=== PATIENT | male | born 1995 | race American Indian/Alaskan Native ===

== ENCOUNTER 2016-10-28 11:04 | Emergency (ER) | payer SELFPAY ==
[2016-10-28] MEDS ORDERED: TYLENOL ONE (12:43)
[2016-10-28 12:46] VITALS: BP 126/67
[2016-10-28] MEDS ORDERED: TYLENOL PO ONE (12:47)
--- NOTE | 2016-10-28 13:07 | Emergency Department Report ---
ED ENT HPI - General Chief complaint: Sore Throat Stated complaint: SORE THROAT Time Seen by Provider: 10/28/16 13:04 Source: patient Mode of arrival: Ambulatory Limitations: No Limitations - History of Present Illness MD complaint: sore throat - Related Data Previous Rx's Medication Instructions Recorded Last Taken Type Amoxicillin [Trimox CAP] 500 mg PO Q8H #30 capsule 03/27/15 Unknown Rx HYDROcodone/APAP 5-325 [[place] 1 each PO Q6HR PRN #20 tablet 03/27/15 Unknown Rx 5/325] Amoxicillin [Amoxicillin TAB] 875 mg PO BID #20 tablet 10/28/16 Unknown Rx predniSONE [Deltasone] 50 mg PO QDAY #5 tab 10/28/16 Unknown Rx Allergies Allergy/AdvReac Type Severity Reaction Status Date / Time No Known Allergies Allergy Verified 03/27/15 12:01 ED Dental HPI - General Chief complaint: Sore Throat Stated complaint: SORE THROAT Time Seen by Provider: 10/28/16 13:04 Source: patient Mode of arrival: Ambulatory Limitations: No Limitations - Related Data Previous Rx's Medication Instructions Recorded Last Taken Type Amoxicillin [Trimox CAP] 500 mg PO Q8H #30 capsule 03/27/15 Unknown Rx HYDROcodone/APAP 5-325 [[place] 1 each PO Q6HR PRN #20 tablet 03/27/15 Unknown Rx 5/325] Amoxicillin [Amoxicillin TAB] 875 mg PO BID #20 tablet 10/28/16 Unknown Rx predniSONE [Deltasone] 50 mg PO QDAY #5 tab 10/28/16 Unknown Rx Allergies Allergy/AdvReac Type Severity Reaction Status Date / Time No Known Allergies Allergy Verified 03/27/15 12:01 ED Review of Systems ROS: Stated complaint: SORE THROAT Other details as noted in HPI ED Past Medical Hx - Past Medical History Previous Medical History?: No Hx Psychiatric Treatment: Yes (ADHD) - Surgical History Past Surgical History?: No - Social History Smoking Status: Current Every Day Smoker Substance Use Type: Alcohol - Medications Home Medications: Home Medications Medication Instructions Recorded Confirmed Last Taken Type Amoxicillin [Trimox CAP] 500 mg PO Q8H #30 capsule 03/27/15 Unknown Rx HYDROcodone/APAP 5-325 [[place] 1 each PO Q6HR PRN #20 tablet 03/27/15 Unknown Rx 5/325] Amoxicillin [Amoxicillin TAB] 875 mg PO BID #20 tablet 10/28/16 Unknown Rx predniSONE [Deltasone] 50 mg PO QDAY #5 tab 10/28/16 Unknown Rx ED Physical Exam - General Limitations: No Limitations General appearance: alert, in no apparent distress - Head Head exam: Present: atraumatic, normocephalic - Eye Eye exam: Present: normal appearance - ENT ENT exam: Present: mucous membranes moist - Expanded ENT Exam Expanded Throat exam: Positive: tonsillar erythema, tonsillar exudate. Negative: R peritonsillar mass, L peritonsillar mass - Neck Neck exam: Present: lymphadenopathy. Absent: tenderness, meningismus, full ROM - Respiratory Respiratory exam: Present: normal lung sounds bilaterally. Absent: respiratory distress - Cardiovascular Cardiovascular Exam: Present: regular rate, normal rhythm. Absent: systolic murmur, diastolic murmur, rubs, gallop - GI/Abdominal GI/Abdominal exam: Present: soft, normal bowel sounds - Rectal Rectal exam: Present: deferred - Extremities Exam Extremities exam: Present: normal inspection - Back Exam Back exam: Present: normal inspection - Neurological Exam Neurological exam: Present: alert, oriented X3 - Psychiatric Psychiatric exam: Present: normal affect, normal mood - Skin Skin exam: Present: warm, dry, intact, normal color. Absent: rash ED Course Vital Signs 10/28/16 12:44 Temperature 102.2 F H Pulse Rate 113 H Respiratory 20 Rate Blood Pressure 126/67 Critical care attestation.: If time is entered above; I have spent that time in minutes in the direct care of this critically ill patient, excluding procedure time. ED Disposition Clinical Impression: Tonsillitis Disposition: DISCHARGED TO HOME OR SELFCARE Is pt being admited?: No Condition: Stable Instructions: Tonsillitis (ED) Prescriptions: Amoxicillin [Amoxicillin TAB] 875 mg PO BID #20 tablet predniSONE [Deltasone] 50 mg PO QDAY #5 tab Referrals: PRIMARY CARE, [Primary Care Provider] - 3-5 Days
== END 2016-10-28 13:25 | disposition home or self-care (01) ==
LOC: ED 11:04
DX: J03.90 Acute tonsillitis, unspecified (principal); F17.200 Nicotine dependence, unspecified, uncomplicated
CPT/HCPCS: 87430; 99282

== ENCOUNTER 2021-09-22 09:31 | Emergency (ER) | payer MEDICARE ==
[2021-09-22 09:38] VITALS: BP 120/58
[2021-09-22 12:15] LABS: Basophils % (Auto) 0.7 % (0.0-1.8); Eosinophils % (Auto) 0.7 % (0.0-4.3); Hematocrit 26.4 % (35.5-45.6); Hemoglobin 9.3 gm/dl (11.8-15.2); Lymphocytes # (Auto) 0.8 K/mm3 (1.2-5.4); Lymphocytes % (Auto) 26.9 % (13.4-35.0); Mean Corpuscular HGB Conc 35 % (32-34); Mean Corpuscular Volume 103 fl (84-94); Monocytes # (Auto) 0.3 K/mm3 (0.0-0.8); Monocytes % (Auto) 10.6 % (0.0-7.3); Platelet Count 121 K/mm3 (140-440); Red Blood Count 2.57 M/mm3 (3.65-5.03); Red Cell Distribution Width 16.3 % (13.2-15.2)
[2021-09-22 12:33] LABS: Alanine Aminotransferase 9 units/L (7-56); Albumin 3.8 g/dL (3.9-5); BUN/Creatinine Ratio 16; Blood Urea Nitrogen 14 mg/dL (9-20); Calcium 8.8 mg/dL (8.4-10.2); Hemolysis Index 16
[2021-09-22 12:41] LABS: Bilirubin,Direct < 0.2 mg/dL (0-0.2)
[2021-09-22] MEDS ORDERED: MORPHINE 4 MG/1 ML INJ IV ONE (12:50)
[2021-09-22] MEDS ORDERED: ONDANSETRON 4 MG/2 ML INJ IV ONE (12:50)
--- NOTE | 2021-09-22 12:53 | Event Note ---
ED Screening Note ED Screening Note: Patient presents with complaints of lower abdominal pain today Difficulty with giving patient history He also complains of burning to his penis for a year without dysuria or skin lesions or testicular pain/swelling This initial assessment/diagnostic orders/clinical plan/treatment(s) is/are subject to change based on patients health status, clinical progression and re- assessment by fellow clinical providers in the ED. Further treatment and workup at subsequent clinical providers discretion. Patient/guardian urged not to elope from the ED as their condition may be serious if not clinically assessed and managed. Initial orders include: Labs CT abdomen
[2021-09-22 13:50] LABS: Bilirubin,Urine NEG (Negative); Blood,Urine NEG (Negative); Color,Urine Yellow (Yellow); Mucus,Urine FEW /HPF; Protein,Urine <15 mg/dL mg/dL (Negative); RBC,Urine < 1.0 /HPF (0.0-6.0); Urobilinogen,Urine < 2.0 mg/dL (<2.0); WBC,Urine < 1.0 /HPF (0.0-6.0)
--- NOTE | 2021-09-22 14:24 | Emergency Department Report ---
ED General Adult HPI - General Chief complaint: Abdominal Pain Stated complaint: ABDOMINAL PAIN/HEADACHE Time Seen by Provider: 09/22/21 14:13 Source: patient, EMS Mode of arrival: Ambulatory Limitations: No Limitations - History of Present Illness Initial comments: Patient presents via EMS with complaints of lower abdominal pain today. Patient is a poor historian. He denies any nausea/vomiting, diarrhea, melena/hematochezia, or fever/chills/sweats. He also complains of burning to his penis for a year without dysuria or skin lesions or testicular pain/swelling. Patient states he has not had any penile discharge and does not believe he has any STDs. He denies any past medical history or history of abdominal surgeries. Patient is continuously requesting food and beverages Severity scale (0 -10): 1 - Related Data Previous Rx's Medication Instructions Recorded Last Taken Type Amoxicillin [Trimox CAP] 500 mg PO Q8H #30 capsule 03/27/15 Unknown Rx HYDROcodone/APAP 5-325 [[place] 1 each PO Q6HR PRN #20 tablet 03/27/15 Unknown Rx 5/325] Amoxicillin [Amoxicillin TAB] 875 mg PO BID #20 tablet 10/28/16 Unknown Rx predniSONE [Deltasone] 50 mg PO QDAY #5 tab 10/28/16 Unknown Rx Ferrous Sulfate [Feosol 325 MG tab] 325 mg PO QDAY #30 tablet 09/22/21 Unknown R x Allergies Allergy/AdvReac Type Severity Reaction Status Date / Time No Known Allergies Allergy Verified 09/22/21 09:38 ED Review of Systems ROS: Stated complaint: ABDOMINAL PAIN/HEADACHE Other details as noted in HPI Constitutional: denies: chills, fever, malaise Respiratory: denies: cough, shortness of breath Cardiovascular: denies: chest pain Gastrointestinal: abdominal pain. denies: nausea, vomiting, diarrhea Genitourinary: denies: urgency, dysuria, frequency, hematuria, discharge, nataliia ticular mass Musculoskeletal: denies: arthralgia Skin: denies: rash, lesions ED Past Medical Hx - Past Medical History Hx Psychiatric Treatment: Yes (ADHD) - Social History Smoking Status: Current Every Day Smoker Substance Use Type: Alcohol - Medications Home Medications: Home Medications Medication Instructions Recorded Confirmed Last Taken Type Amoxicillin [Trimox CAP] 500 mg PO Q8H #30 capsule 03/27/15 Unknown Rx HYDROcodone/APAP 5-325 [[place] 1 each PO Q6HR PRN #20 tablet 03/27/15 Unknown Rx 5/325] Amoxicillin [Amoxicillin TAB] 875 mg PO BID #20 tablet 10/28/16 Unknown Rx predniSONE [Deltasone] 50 mg PO QDAY #5 tab 10/28/16 Unknown Rx Ferrous Sulfate [Feosol 325 MG tab] 325 mg PO QDAY #30 tablet 09/22/21 Unknown Rx ED Physical Exam - General Limitations: No Limitations General appearance: alert, in no apparent distress - Head Head exam: Present: atraumatic, normocephalic - Eye Eye exam: Present: normal appearance - Respiratory Respiratory exam: Present: normal lung sounds bilaterally. Absent: respiratory distress - Cardiovascular Cardiovascular Exam: Present: regular rate, normal rhythm - GI/Abdominal GI/Abdominal exam: Present: soft, tenderness (Lower abdomen), normal bowel sounds. Absent: distended, rigid - exam: Present: other (Patient declined exam however area was palpated on the outside of the clothing and there is no obvious swelling or tenderness to touch) - Back Exam Back exam: Absent: CVA tenderness (R), CVA tenderness (L) - Neurological Exam Neurological exam: Present: alert, oriented X3, normal gait - Psychiatric Psychiatric exam: Present: normal affect, other (Hyperactive) - Skin Skin exam: Present: warm, dry, intact, normal color. Absent: rash ED Course Vital Signs 09/22/21 09/22/21 09:36 13:27 Temperature 98.6 F Pulse Rate 80 Respiratory 14 14 Rate Blood Pressure 120/58 [Right] O2 Sat by Pulse 98 Oximetry ED Medical Decision Making - Lab Data Result diagrams: 09/22/21 11:53 09/22/21 11:53 Lab Results 09/22/21 09/22/21 09/22/21 Range/Units 11:53 11:53 13:25 WBC 2.8 L (4.5-11.0) K/mm3 RBC 2.57 L (3.65-5.03) M/mm3 Hgb 9.3 L (11.8-15.2) gm/dl Hct 26.4 L (35.5-45.6) % MCV 103 H (84-94) fl MCH 36 H (28-32) pg MCHC 35 H (32-34) % RDW 16.3 H (13.2-15.2) % Plt Count 121 L (140-440) K/mm3 Lymph % (Auto) 26.9 (13.4-35.0) % [place]ye % (Auto) 10.6 H (0.0-7.3) % Eos % (Auto) 0.7 (0.0-4.3) % Baso % (Auto) 0.7 (0.0-1.8) % Lymph # (Auto) 0.8 L (1.2-5.4) K/mm3 Nye # (Auto) 0.3 (0.0-0.8) K/mm3 Eos # (Auto) 0.0 (0.0-0.4) K/mm3 Baso # (Auto) 0.0 (0.0-0.1) K/mm3 Seg Neutrophils % 61.1 (40.0-70.0) % Seg Neutrophils # 1.7 L (1.8-7.7) K/mm3 Sodium 143 (137-145) mmol/L Potassium 4.2 (3.6-5.0) mmol/L Chloride 110.8 H (98-107) mmol/L Carbon Dioxide 25 (22-30) mmol/L Anion Gap 11 mmol/L BUN 14 (9-20) mg/dL Creatinine 0.9 (0.8-1.3) mg/dL Estimated GFR > 60 ml/min BUN/Creatinine Ratio 16 % Glucose 73 L (75-100) mg/dL Calcium 8.8 (8.4-10.2) mg/dL Total Bilirubin 0.20 (0.1-1.2) mg/dL Direct Bilirubin < 0.2 (0-0.2) mg/dL Indirect Bilirubin 0.0 mg/dL AST 20 (5-40) units/L ALT 9 (7-56) units/L Alkaline Phosphatase 63 (35-129) units/L Total Protein 7.7 (6.3-8.2) g/dL Albumin 3.8 L (3.9-5) g/dL Albumin/Globulin Ratio 1.0 % Lipase 50 (13-60) units/L Urine Color Yellow (Yellow) Urine Turbidity Clear (Clear) Urine pH 5.0 (5.0-7.0) Ur Specific [place] 1.011 (1.003-1.030) Urine Protein <15 mg/dl (Negative) mg/dL Urine Glucose (UA) Neg (Negative) mg/dL Urine Ketones Neg (Negative) mg/dL Urine Blood Neg (Negative) Urine Nitrite Neg (Negative) Urine Bilirubin Neg (Negative) Urine Urobilinogen < 2.0 (<2.0) mg/dL Ur Leukocyte Esterase Neg (Negative) Urine WBC (Auto) < 1.0 (0.0-6.0) /HPF Urine RBC (Auto) < 1.0 (0.0-6.0) /HPF Urine Mucus Few /HPF - Medical Decision Making Patient presents via EMS with complaints of lower abdominal pain today. Patient is a poor historian. He denies any nausea/vomiting, diarrhea, melena/hematochezia, or fever/chills/sweats. He also complains of burning to his penis for a year without dysuria or skin lesions or testicular pain/swelling. Patient states he has not had any penile discharge and does not believe he has any STDs. He denies any past medical history or history of abdominal surgeries. Patient is continuously requesting food and beverages UA and CMP are negative for any acute abnormalities. CBC shows anemia and mild leukopenia. Patient refusing imaging. Discussed possibility of life- threatening conditions given lower abdominal pain, patient verbalizes understanding and continues to refuse imaging. Patient continues to yell at staff and asked for food and beverages. He is in no acute distress. Vitals are within normal limits. Recommend follow-up outpatient with PCP for recheck of labs in 1 week. Critical care attestation.: If time is entered above; I have spent that time in minutes in the direct care of this critically ill patient, excluding procedure time. ED Disposition Clinical Impression: Abdominal pain, Anemia, Leukopenia Disposition: HOME / SELF CARE / HOMELESS Is pt being admited?: No Condition: Stable Instructions: Abdominal Pain, Adult, [id number] Prescriptions: Ferrous Sulfate [Feosol 325 MG tab] 325 mg PO QDAY #30 tablet Referrals: [facility] [Provider Group] - 3-5 Days
== END 2021-09-22 14:57 | disposition home or self-care (01) ==
LOC: ED 09:31
DX: R10.30 Lower abdominal pain, unspecified (principal); D64.9 Anemia, unspecified; D72.819 Decreased white blood cell count, unspecified; F17.200 Nicotine dependence, unspecified, uncomplicated; Z72.89 Other problems related to lifestyle; Z79.899 Other long term (current) drug therapy
CPT/HCPCS: 36415; 80048; 80076; 81001; 83690; 85025; 99283; J2270; J2405

== ENCOUNTER 2021-10-19 22:20 | Emergency (ER) | payer MEDICARE ==
--- NOTE | 2021-10-20 11:55 | Emergency Department Report ---
ED General Adult HPI - General Chief complaint: Animal Bite Stated complaint: LICE Time Seen by Provider: 10/20/21 11:36 Source: EMS Mode of arrival: Ambulatory Limitations: No Limitations - History of Present Illness Initial comments: 26-year-old black male presents to the emergency department complaining of bugs crawling in his hair. Severity scale (0 -10): 0 - Related Data Previous Rx's Medication Instructions Recorded Last Taken Type Amoxicillin [Trimox CAP] 500 mg PO Q8H #30 capsule 03/27/15 Unknown Rx HYDROcodone/APAP 5-325 [[place] 1 each PO Q6HR PRN #20 tablet 03/27/15 Unknown Rx 5/325] Amoxicillin [Amoxicillin TAB] 875 mg PO BID #20 tablet 10/28/16 Unknown Rx predniSONE [Deltasone] 50 mg PO QDAY #5 tab 10/28/16 Unknown Rx Ferrous Sulfate [Feosol 325 MG tab] 325 mg PO QDAY #30 tablet 09/22/21 Unknown Rx Malathion 59 ml TP ONCE #1 bottle 10/20/21 Unknown Rx Allergies Allergy/AdvReac Type Severity Reaction Status Date / Time No Known Allergies Allergy Verified 09/22/21 09:38 ED Review of Systems ROS: Stated complaint: LICE Other details as noted in HPI Comment: All other systems reviewed and negative Respiratory: denies: shortness of breath Cardiovascular: denies: chest pain Gastrointestinal: denies: abdominal pain Skin: denies: rash, lesions Neurological: denies: headache, weakness ED Past Medical Hx - Past Medical History Hx Psychiatric Treatment: Yes (ADHD) - Social History Smoking Status: Current Every Day Smoker Substance Use Type: Alcohol - Medications Home Medications: Home Medications Medication Instructions Recorded Confirmed Last Taken Type Amoxicillin [Trimox CAP] 500 mg PO Q8H #30 capsule 03/27/15 Unknown Rx HYDROcodone/APAP 5-325 [[place] 1 each PO Q6HR PRN #20 tablet 03/27/15 Unknown Rx 5/325] Amoxicillin [Amoxicillin TAB] 875 mg PO BID #20 tablet 10/28/16 Unknown Rx predniSONE [Deltasone] 50 mg PO QDAY #5 tab 10/28/16 Unknown Rx Ferrous Sulfate [Feosol 325 MG tab] 325 mg PO QDAY #30 tablet 09/22/21 Unknown Rx Malathion 59 ml TP ONCE #1 bottle 03/22/22 Unknown Rx ED Physical Exam - General Limitations: No Limitations General appearance: alert, in no apparent distress - Head Head exam: Present: atraumatic, normocephalic. Absent: normal inspection (Noted to have small mites crawling up all over hair and scalp.) - Eye Eye exam: Present: normal appearance. Absent: conjunctival injection - Neck Neck exam: Present: normal inspection - Respiratory Respiratory exam: Absent: respiratory distress - Cardiovascular Cardiovascular Exam: Present: regular rate - GI/Abdominal GI/Abdominal exam: Absent: distended - Extremities Exam Extremities exam: Present: normal inspection - Back Exam Back exam: Present: normal inspection - Neurological Exam Neurological exam: Present: alert, oriented X3 - Psychiatric Psychiatric exam: Present: normal affect, normal mood - Skin Skin exam: Present: warm, dry, intact, normal color ED Course Vital Signs 10/19/21 10/20/21 22:36 12:25 Temperature 97.8 F Pulse Rate 84 78 Respiratory 16 20 Rate Blood Pressure 141/108 113/75 [Left] O2 Sat by Pulse 99 98 Oximetry ED Medical Decision Making - Medical Decision Making 26-year-old black male presents to the emergency department complaining of bugs crawling in his hair. Exam consistent with pediciulus capitis, and he was given a prescription for malathion to use as directed. Critical care attestation.: If time is entered above; I have spent that time in minutes in the direct care of this critically ill patient, excluding procedure time. ED Disposition Clinical Impression: Pediculosis capitis Disposition: 01 HOME / SELF CARE / HOMELESS Is pt being admited?: No Does the pt Need Aspirin: No Condition: Stable Instructions: Lice, Adult Additional Instructions: Use medication as prescribed. Follow-up with primary care provider if no improvement or worsening. Prescriptions: Malathion 59 ml TP ONCE #1 bottle Referrals: NEVILLE BAILEY MD [Primary Care Provider] - 3-5 Days Time of Disposition: 11:55
[2021-10-20 12:26] VITALS: BP 113/75
== END 2021-10-20 12:26 | disposition home or self-care (01) ==
LOC: ED 22:20
DX: B85.0 Pediculosis due to Pediculus humanus capitis (principal); F17.200 Nicotine dependence, unspecified, uncomplicated; F10.20 Alcohol dependence, uncomplicated
CPT/HCPCS: 99283

== ENCOUNTER 2021-11-14 17:16 | Emergency (ER) | payer MEDICARE ==
[2021-11-15 01:49] VITALS: BP 117/76
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
== END 2021-11-15 01:49 | disposition home or self-care (01) ==
LOC: ED 17:16
DX: I46.9 Cardiac arrest, cause unspecified (principal)
CPT/HCPCS: 92950; 99283; 99285

== ENCOUNTER 2021-11-17 12:56 | Emergency (ER) | payer MEDICARE ==
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
[2021-11-17] MEDS ORDERED: SODIUM BICARB 8.4% 50 MEQ/50 ML SYRINGE IV ONE (15:00)
[2021-11-17] MEDS ORDERED: EPINEPHrine 1 MG/10 ML SYRINGE ONE (15:00)
== END 2021-11-17 16:43 ==
LOC: ED 12:56
DX: I46.9 Cardiac arrest, cause unspecified (principal)
CPT/HCPCS: 92950; 99285; J0171